=== PATIENT | female | born 1955 | race Caucasian/White ===

== ENCOUNTER 2023-01-11 12:00 | Outpatient (REF) | payer MEDICARE, SELFPAY | END 2023-01-11 12:01 | disposition home or self-care (01) | LOC: HO.LNP 12:00 | PROVIDERS: Visit Provider Internal Medicine | DX: M54.50 Low back pain, unspecified (principal); N18.9 Chronic kidney disease, unspecified; N30.01 Acute cystitis with hematuria; R73.01 Impaired fasting glucose | CPT/HCPCS: 87086 ==

== ENCOUNTER 2024-10-06 08:44 | Outpatient (REF) | payer MEDICARE, SELFPAY ==
--- OUTSIDE RECORDS SUMMARY | 2024-10-06 09:24 | XMS_ITS | Clinical Summary ---
Author Organization [facility] Address [address] [place] [address] Phone Care Team Providers Care Sap Treasury Consultant Name Role Phone June Driscoll MD Primary Care Provider Allergies Active Allergy Reactions Criticality Noted Date Comments Lisinopril-Hydrochlorothiazide Rash Low 10/13 Metformin Other (see comments) 10/13/2020 Medications venlafaxine 150 MG 24 hr tablet Take 1 tablet by mouth 2 (two) times a day Active pravastatin (PRAVACHOL) 40 MG tablet 80 mg Active losartan-hydroCH LOROthiazide (HYZAAR) 100-25 MG per tablet Take 1 tablet by mouth 1 (one) time each day Active hydroxychloroqui ne (PLAQUENIL) 200 MG tablet Take 1 tablet by mouth 1 (one) time each day Active Cholecalciferol 50 MCG (2000 UT) capsule Take 100 mcg by mouth 1 (one) time each day Active acetaminophen (TYLENOL) 325 MG tablet Take 975 mg by mouth 2 (two) times a day 05/08/2017 Active omega-3 (FISH OIL) 1200 MG capsule Take by mouth 1 (one) time each day Active Multiple Vitamins-Mineral s (Multivitamin Adults 50+) tablet Take by mouth Active metFORMIN XR (GLUCOPHAGE-XR) 500 MG 24 hr tablet Take 500 mg by mouth 09/05/2022 Active Active Problems Problem Noted Date Diagnosed Date Multiple nodules of lung 05/10/2022 Overview (10/09/2023): Last Assessment & Plan: 3 subcentimeter lung nodules in the setting of history of smoking. She needs a follow-up CT scan on March 2023.. She is enrolled in the lung cancer screening program. Hypercholesterolemia 03/22/2022 Overview (10/09/2023): Last Assessment & Plan: We did discuss her cholesterol. Her LDL goal is less than 70 with her prediabetes. She is doing well on her statin. Her last lipid check was favorable. She does have an elevation in triglycerides. Hopefully this will improve with diet and exercise. Tight chest 03/20/2022 Overview (10/09/2023): Last Assessment & Plan: We did discuss her chest tightness. This sounds like she is having esophageal spasm. We did discuss techniques that she can try to avoid this. History of procedure 03/20/2022 Overview (03/25/2024): Replacing diagnoses that were inactivated after the 03/25/24 Regulatory Import Hypertensive disorder 03/20/2022 Overview (10/09/2023): Last Assessment & Plan: Her blood pressure is stable today. We will continue to monitor. Ex-heavy cigarette smoker (20-39/day) 02/07/2022 Overview (10/09/2023): Last Assessment & Plan: Discussions regarding benefits of lung cancer screening were done. I will do a referral to the lung cancer screening clinic. Dyspnea on exertion 02/07/2022 Overview (10/09/2023): Last Assessment & Plan: Ashli is a 66-year-old ex-smoker woman with dyspnea on exertion and normal cardiovascular and pulmonary work-up. I do think that her dyspnea is multifactorial due to deconditioning in the setting of morbid obesity given her normal pulmonary function test. She does have some sleep apnea that has not been treated because she states that the machine is broken and I will order a new pulmonary function test. I encouraged her to start getting into an exercise program if is okay with her title checker. I told her that a weight loss and exercise fitness program may benefit and help her with the dyspnea. There is no need for using inhalers at this point but she has albuterol that she use a couple of times without any relief. She does not have wheezing so this is not asthma or COPD. Obstructive nephropathy 10/20/2020 Obstructive sleep apnea syndrome 10/20/2020 Anemia in chronic kidney disease 10/20/2020 Primary generalized osteoarthritis 10/20/2020 Localized edema 10/13/2020 Stage 3b chronic kidney disease 10/13/2020 Acute nontraumatic kidney injury 10/13/2020 Resolved Problems Problem Noted Date Diagnosed Date Resolved Date Osteoarthritis of left hip joint 05/07/2017 10/20/2020 Immunizations Immunization Administration Dates Next Due Influenza Split High Dose Preservative Free IM 1 Family History Medical History Relation Comments Gout Father Hypertension Father Kidney disease Father paternal grandmo ther had brights Stroke Father Dementia Mother Diabetes Mother Diabetes Sibling sister Relation Status Comments Father Mother Sibling Social History Tobacco Use Types Packs/Day Years Used Date Smoking Tobacco: Former Cigarettes 0 06/25/1979 - 06/25/2015 Smokeless Tobacco: Never Alcohol Use Standard Drinks/Week Comments No 0 (1 standard drink = 0.6 oz pur e alcohol) Comments Unknown Sex and Gender Information Value Date Recorded Sex Assigned at Female 10/17/2021 6:07 PM EDT Legal Sex Female 4:41 PM EST Gender Identity Female 10/17/2021 6:07 PM EDT Sexual Orientation Not on file Last Filed Vital Signs Vital Sign Reading Time Taken Comments Blood Pressure 136/78 10/10/2023 7:45 AM EDT Pulse 85 10/10/2023 7:45 AM EDT Temperature - - Respiratory Rate - - Oxygen Saturation 99% 10/10/2023 7:45 AM EDT Inhaled Oxygen Concentration - - Weight 97.8 kg (215 lb 9.6 oz) 10/10/2023 7:45 A M EDT Height 160 cm (5' 3 ) 10/10/2023 7:45 AM EDT Body Mass Index 38.19 10/10/2023 7:45 AM EDT Plan of Treatment Upcoming Encounters Date Type Department Care Team (Late st Contact Info) Description 10/08/2024 8:00 AM EDT Office Visit [facility] [address] [address] Chinedu Pavon MD [address] [address] Health Maintenance Due Date Last Done Comments Breast Cancer Screening 1954 Pneumococcal Vaccine: 50+ Ye ars (1 of 2 - PCV) 1973 Colorectal Cancer Screening: Annual FOBT 2003 Colorectal Cancer Screening: Colonoscopy 2003 Colorectal Cancer Screening: Sigmoidoscopy 2003 Influenza Vaccine (Season Ended) 2025 03/29/20 17 Hepatitis B Vaccine Aged Out No longe r eligible based on patient's age to complete this topic Insurance [employer] Medicare [employer] Medicare Care Teams Sap Treasury Consultant Relationship Specialty Start Date End Date June Driscoll MD [address] [place] [address] PCP - General Internal Medicine 10/11/22
--- OUTSIDE RECORDS SUMMARY | 2024-10-06 09:24 | XMS_ITS | Encounter Summary ---
Author Organization [facility] Address [address] [place] [address] Care Team Providers Care House Mover Supervisor Name Role Phone June Driscoll MD Primary Care Provider [phone] Encounter Details Date Type Department Care Team (Late st Contact Info) Description 08/26/2024 Lab Requisition [facility] - Main Lab [address] [facility] [place] [address] June Driscoll MD [address] [place] [address] [place] [address] Social History Tobacco Use Types Packs/Day Years Used Date Smoking Tobacco: Former Cigarettes Q uit: 06/25/2014 Smokeless Tobacco: Never Alcohol Use Standard Drinks/Week Comments Not Currently 0 (1 standard drink = 0.6 oz pur e alcohol) Comments Unknown Sex and Gender Information Value Date Recorded Sex Assigned at Not on file Legal Sex Female 7:27 AM EDT Gender Identity Not on file Sexual Orientation Not on file documented as of this encounter Plan of Treatment Scheduled Orders Name Type Priority Associated Diagnoses Orde r Schedule Comprehensive metabolic panel Lab Routine Ordered: 08/26/2024 Hemoglobin A1c Lab Routine Ordered: 0 08/26/2024 documented as of this encounter Visit Diagnoses Not on filedocumented in this encounter Care Teams House Mover Supervisor Relationship Specialty Start Date End Date June Driscoll MD [address] [place] PCP - General Internal Medicine 01/04/22 documented as of this encounter
--- OUTSIDE RECORDS SUMMARY | 2024-10-06 09:24 | XMS_ITS | Clinical Summary ---
Author Organization [facility] Address [address] [place] [address] Care Team Providers Care Biomedical Engineering Internship Name Role Phone June Driscoll MD Primary Care Provider [phone] Allergies No known active allergies Encounters Date Type Department Care Team Description 08/26/2024 Lab Requisition [facility] - Main Lab 299 [facility] [place] [address] June Driscoll MD from Last 3 Months Family History Medical History Relation Name Comments Other: stroke Father Relation Name Status Comments Father Social History Tobacco Use Types Packs/Day Years [...] on file Sexual Orientation Not on file Obstetrics History Last Filed Vital Signs Vital Sign Reading Time Taken Comments Blood Pressure 124/76 07/25/2023 7:43 AM EST Sit ting L Arm Pulse 85 07/25/2023 7:43 AM EST Temperature - - Respiratory Rate - - Oxygen Saturation - - Inhaled Oxygen Concentration - - Weight 98.4 kg (217 lb) 07/25/2023 7:43 AM EST Height 161.3 cm (5' 3.5 ) 07/25/2023 7:43 AM EST Body Mass Index 37.84 07/25/2023 7:43 AM EST Plan of Treatment Health Maintenance Due Date Last Done Comments Breast Cancer Screening 1954 COVID-19 Vaccine (#1) 1959 DTaP,Tdap,and Td Vaccines (1 - Tdap) 1973 Pneumococcal Vaccine: 50+ Years (1 of 1 - PCV) 2004 Zoster Vaccines (1 of 2) 2004 Cholesterol Screening (Lipid Panel) 12/05/2021 Depression Screening 12/05/2021 Falls Risk Assessment 12/05/2021 Hepatitis C Screening 12/05/2021 Medicare Annual Wellness Visit 12/05/2021 Osteoporosis Screening (Bone Density Screening) 12/05/2021 Social Influencers of Health Screening 12/05/2021 Hypertension/CHF/CAD Annual BMP Blood Test 07/24/2023 Influenza Vaccine (Season Ended) 2025 05/14/2020, 03/29/2017 Lung Cancer Screening (Low Dose CT) 06/10/2025 06/10/2024, 05/26/2023, 04/24/2022 Colorectal Cancer Screening: FIT-DNA (Cologuard) 05/21/2026 05/21/2023, 05/21/2023 RSV Immunization Adult Patients (1 - 1-dose 75+ series) 2029 HIB Vaccines Aged Out No longer eligi ble based on patient's age to complete this topic HPV Vaccines Aged Out No longer eligi ble based on patient's age to complete this topic Hepatitis A Vaccines Aged Out No long er eligible based on patient's age to complete this topic Hepatitis B Vaccines Aged Out No long er eligible based on patient's age to complete this topic IPV Vaccines Aged Out No longer eligi ble based on patient's age to complete this topic MMR Vaccines Aged Out No longer eligi ble based on patient's age to complete this topic Meningococcal ACWY Vaccine Aged Out N o longer eligible based on patient's age to complete this topic Meningococcal B Vaccine Aged Out No l onger eligible based on patient's age to complete this topic RSV Immunization Patients Under 20 months Aged Out No longer eligible b ased on patient's age to complete this topic Varicella Vaccines Aged Out No longer eligible based on patient's age to complete this topic Procedures Procedure Name Priority Date/Time Associated Diagnosis Comments CT LUNG SCREENING Routine 06/10/2024 3:4 9 PM EST Personal history of nicotine dependence Encounter for screening for malignant neoplasm of respiratory organs from Last 3 Months or Most Recently Relevant to Health Maintenance Results * CT Lung Screening (06/10/2024 3:49 PM EST) Anatomical Region Laterality Modality Chest Computed Tomogra phy 06/12/2024 10:1 6 AM EST Impressions 06/12/2024 10:28 AM EST No suspicious pulmonary nodules Lung RADS 2: Benign Appearance or Behavior - Continue annual screening with LDCT in 12 months. -------- FINAL REPORT -------- Dictated By: Sudha Shaikh Dictated Date: 06/12/2024 10:16 ET Assigned Physician: Sudha Shaikh Reviewed and Electronically Signed By: Sudha Shaikh Signed Date: 06/12/2024 10:28 ET Workstation ID: [id number] Transcribed By: Self Edit Transcribed Date: 06/12/2024 10:16 ET Narrative 06/12/2024 10:28 AM EST Indication: Greater than 20 total pack-year smoking history, asymptomatic ??former smoker Technique: Low-dose CT scan of the chest obtained as a lung cancer screening study. Multiplanar reformatted images were obtained. ??Dose reduction technique: ASIR (Adaptive statistical iterative reconstruction) and/or AEC (automated exposure control) DLP: ??158.31 mGy-cm COMPARISON: April 2023. FINDINGS: Lack of intravenous contrast limits evaluation of the magali, vascular structures and visualized abdominal viscera. ?? Lungs/airways: Trachea and central airways are patent. ??Mild bronchial wall thickening. ??Bleb in the anterior left upper lobe. ??Emphysematous changes. ??Increased reticularity with a subpleural predominance in keeping with fibrosis. ??Nonspecific groundglass opacities in the left lower lobe of the lung; slightly increased from 2022. Scattered sub-centimeter nodules, similar to prior. For example: 3 mm nodule in the left upper lobe (series 3, image 93) 6 mm nodule right upper lobe (series 3, image 101) Base of the neck, mediastinum, heart, chest wall, vessels: ??The assessment of hilar lymphadenopathy is difficult without the use of IV contrast. ??No enlarged mediastinal lymphadenopathy. ??Thoracic aortic and coronary artery calcifications. ?? Upper abdomen: This study was performed without contrast and with lower than standard dose. These factors reduce the sensitivity for detection of small lesions in the upper abdomen. Small hiatal hernia. ??Fatty infiltration of the pancreas. ??Cholelithiasis. Bones/soft tissues: Degenerative changes. ??Partially visualized cervical fusion hardware. Procedure Note Sudha Shaikh MD - 06/12/2024 Indication: Greater than 20 total pack-year smoking history, asymptomaticformer smoker Technique: Low-dose CT scan of the chest obtained as a lung cancerscreening study. Multiplanar reformatted images were obtained. Dosereduction technique: ASIR (Adaptive statistical iterative reconstruction)and/or AEC (automated exposure control) DLP: 158.31 mGy-cm COMPARISON: April 2023. FINDINGS: Lack of intravenous contrast limits evaluation of the magali,vascular structures and visualized abdominal viscera. Lungs/airways: Trachea and central airways are patent. Mild bronchialwall thickening. Bleb in the anterior left upper lobe. Emphysematouschanges. Increased reticularity with a subpleural predominance in keepingwith fibrosis. Nonspecific groundglass opacities in the left lower lobeof the lung; slightly increased from 2022. Scattered sub-centimeter nodules, similar to prior. For example: 3 mm nodule in the left upper lobe (series 3, image 93) 6 mm nodule right upper lobe (series 3, image 101) Base of the neck, mediastinum, heart, chest wall, vessels: The assessmentof hilar lymphadenopathy is difficult without the use of IV contrast. Noenlarged mediastinal lymphadenopathy. Thoracic aortic and coronary arterycalcifications. Upper abdomen: This study was performed without contrast and with lowerthan standard dose. These factors reduce the sensitivity for detection ofsmall lesions in the upper abdomen. Small hiatal hernia. Fattyinfiltration of the pancreas. Cholelithiasis. Bones/soft tissues: Degenerative changes. Partially visualized cervicalfusion hardware. IMPRESSION: No suspicious pulmonary nodules Lung RADS 2: Benign Appearance or Behavior - Continue annual screeningwith LDCT in 12 months. -------- FINAL REPORT -------- Dictated By: Sudha Shaikh Dictated Date: 06/12/2024 10:16 ET Assigned Physician: Sudha Shaikh Reviewed and Electronically Signed By: Sudha Shaikh Signed Date: 06/12/2024 10:28 ET Workstation ID: [id number] Transcribed By: Self Edit Transcribed Date: 06/12/2024 10:16 ET Enoc Delatorre MD IMG CT PROCEDURES Final Result from Last 3 Months or Most Recently Relevant to Health Maintenance Insurance [employer] Care Teams Biomedical Engineering Internship Relationship Specialty Start Date End Date June Driscoll MD [address] PCP - General Internal Medicine 01/04/22
[2024-10-06 10:50] LABS: MANUAL DIFF FLAG NO
[2024-10-06 10:52] LABS: Basophils Percent Auto 1.8 % (0-2); Eosinophils Percent Auto 5.3 % (0-4); Hematocrit 36.2 % (37.0-47.0); Hemoglobin 11.9 g/dl (12.0-16.0); Imm Gran Abs Auto 0.01 X10*3/uL (0.00-0.03); Imm Gran Pct Auto 0.2 % (0.0-0.4); Lymphocytes Percent Auto 22.6 % (20-40); Mean Corpuscular HGB Conc 32.9 g/dl (31.0-35.0); Mean Corpuscular Hemoglobin 31.5 pg (27.0-33.0); Mean Corpuscular Volume 95.8 fL (80.0-98.0); Mean Platelet Volume 9.6 fL (9.4-12.3); Monocytes Absolute Auto 0.5 X10*3/uL (0.1-1.2); Monocytes Percent Auto 10.6 % (2-11); Neutrophils Absolute Auto 2.6 x10*3/uL (2.0-8.3); Neutrophils Percent Auto 59.5 % (45-73); Platelet Count 264 X10*3/uL (160-400); Red Blood Count 3.78 X10*6/uL (4.20-5.50); Red Cell Distribution Width 12.3 % (11.0-16.0); White Blood Count 4.3 X10*3/uL (4.8-10.8)
[2024-10-06 10:53] LABS: Basophils Absolute Auto 0.1 X10*3/uL (0.0-0.2); Eosinophils Absolute Auto 0.2 X10*3/uL (0.0-0.4)
[2024-10-06 10:56] LABS: Appearance Urine Clear; Color Urine Yellow; Glucose Urine UA Negative (Negative); Leukocyte Esterase Urine Moderate (2+) (Negative); Nitrite Urine Negative (Negative); PH 6.5 (5.0-9.0); UMIC TRIGGER UA YES; Urine Blood Negative (Negative); Urine Ketones Negative (Negative); Urine Protein Negative (Neg-Trace)
[2024-10-06 11:15] LABS: Bacteria Urine None Seen (None Seen); Hyaline Casts Urine 0-2 /LPF (0-2); RBC Urine 0-2 /HPF (0-2); WBC Urine 0-5 /HPF (0-5)
[2024-10-06 11:15] LABS: Estimated Average Glucose 120 mg/dL; Hemoglobin A1C 127.4891 umol/L; Hemoglobin A1c % 5.8 % (<6.0); Total Hemoglobin (HGBA1C) 3171.0351 umol/L
[2024-10-06 11:26] LABS: Magnesium 2.1 mg/dL (1.6-2.6); Phosphorus 3.7 mg/dL (2.7-4.5); Total Protein 6.7 g/dL (6.5-8.0); Uric Acid 8.3 mg/dL (2.4-5.7)
[2024-10-06 11:29] LABS: Alanine Aminotransferase 17 U/L (0-31); Albumin Level 3.9 g/dL (3.5-5.0); Alkaline Phosphatase 56 U/L (39-117); Anion Gap 10 (12-20); Aspartate Amino Transferase 24 U/L (5-31); Bilirubin Total 0.3 mg/dL (0.0-1.0); Blood Urea Nitrogen 22 mg/dL (9-16); Calcium 9.6 mg/dL (8.4-10.2); Carbon Dioxide 26 mmol/L (22-29); Chloride 108 mmol/L (96-108); Estimated Glomerular Filt Rate 42; Glucose Random 91 mg/dL (60-115); Potassium 4.3 mmol/L (3.3-5.1); Sodium 140 mmol/L (135-145); Total Protein 6.7 g/dL (6.5-8.0)
[2024-10-06 11:42] LABS: Creatinine Urine 61.96 mg/dL; Total Protein Urine Random < 7 mg/dL (<12)
[2024-10-06 11:44] LABS: Parathyroid Hormone Intact 99.8 pg/mL (8.7-77.1)
[2024-10-06 11:46] LABS: Thyroid Stimulating Hormone 2.76 uIU/mL (0.32-4.0)
== END 2024-10-06 08:45 | disposition home or self-care (01) ==
LOC: HO.HMGCLDS 08:44
PROVIDERS: PCP Internal Medicine; Referring Provider Internal Medicine Nephrology; Visit Provider Internal Medicine
DX: E03.8 Other specified hypothyroidism (principal); E78.00 Pure hypercholesterolemia, unspecified; F33.41 Major depressive disorder, recurrent, in partial remission; I10 Essential (primary) hypertension; I12.9 Hypertensive chronic kidney disease with stage 1 through stage 4 chronic kidney disease, or unspecified chronic kidney disease; R73.01 Impaired fasting glucose; N18.32 Chronic kidney disease, stage 3b; R60.0 Localized edema; D63.1 Anemia in chronic kidney disease; N13.8 Other obstructive and reflux uropathy; N17.9 Acute kidney failure, unspecified; G47.33 Obstructive sleep apnea (adult) (pediatric)
CPT/HCPCS: 36415; 80053; 81001; 82306; 82570; 83036; 83735; 83970; 84100; 84155; 84156; 84443; 84550; 85025

== ENCOUNTER 2024-11-24 08:03 | Outpatient (REF) | payer MEDICARE, SELFPAY ==
--- OUTSIDE RECORDS SUMMARY | 2024-11-24 08:08 | XMS_ITS | Encounter Summary ---
Author Organization [facility] Address [address] [place] [address] Care Team Providers Care Content Architect Name Role Phone June Driscoll MD Primary Care Provider [phone] Encounter Details Date Type Department Care Team (Late st Contact Info) Description 08/26/[address] [facility] - Main Lab 299 [facility] [place] [address] June Driscoll MD [address] [place] [address] [place] [address] Social History Tobacco Use Types Packs/Day Years Used Date Smoking Tobacco: Former Cigarettes Q uit: 06/25/2014 Smokeless Tobacco: Never Alcohol Use Standard Drinks/Week Comments Not Currently 0 (1 standard drink = 0.6 oz pur e alcohol) Comments Unknown Sex and Gender Information Value Date Recorded Sex Assigned at Female 10/08/2024 7:12 PM EDT Legal Sex Female 7:27 AM EDT Gender Identity Female 10/08/2024 7:12 PM EDT Sexual Orientation Straight 10/08/2024 7: 12 PM EDT documented as of this encounter Plan of Treatment Scheduled Orders Name Type Priority Associated Diagnoses Orde r Schedule Comprehensive metabolic panel Lab Routine Ordered: 08/26/2024 Hemoglobin A1c Lab Routine Ordered: 0 08/26/2024 documented as of this encounter Visit Diagnoses Not on filedocumented in this encounter Care Teams Content Architect Relationship Specialty Start Date End Date June Driscoll MD [address] [facility] [address] [place], [place] PCP - General Internal Medicine 01/04/22 documented as of this encounter
[2024-11-24 10:05] LABS: MANUAL DIFF FLAG NO
[2024-11-24 10:20] LABS: Basophils Absolute Auto 0.1 X10*3/uL (0.0-0.2); Basophils Percent Auto 1.5 % (0-2); Eosinophils Absolute Auto 0.2 X10*3/uL (0.0-0.4); Eosinophils Percent Auto 4.5 % (0-4); Hematocrit 36.9 % (37.0-47.0); Hemoglobin 11.9 g/dl (12.0-16.0); Imm Gran Abs Auto 0.03 X10*3/uL (0.00-0.03); Imm Gran Pct Auto 0.6 % (0.0-0.4); Lymphocytes Absolute Auto 1.1 X10*3/uL (1.2-4.9); Lymphocytes Percent Auto 19.5 % (20-40); Mean Corpuscular HGB Conc 32.2 g/dl (31.0-35.0); Mean Corpuscular Hemoglobin 31.1 pg (27.0-33.0); Mean Corpuscular Volume 96.3 fL (80.0-98.0); Mean Platelet Volume 9.8 fL (9.4-12.3); Monocytes Absolute Auto 0.6 X10*3/uL (0.1-1.2); Monocytes Percent Auto 10.4 % (2-11); NRBC Pct Auto 0.4 /100WBC (0.0-0.2); Neutrophils Absolute Auto 3.4 x10*3/uL (2.0-8.3); Neutrophils Percent Auto 63.5 % (45-73); Platelet Count 263 X10*3/uL (160-400); Red Blood Count 3.83 X10*6/uL (4.20-5.50); Red Cell Distribution Width 12.5 % (11.0-16.0); White Blood Count 5.4 X10*3/uL (4.8-10.8)
[2024-11-24 10:39] LABS: Alanine Aminotransferase 14 U/L (0-31); Alkaline Phosphatase 50 U/L (39-117); Aspartate Amino Transferase 23 U/L (5-31); Bilirubin Direct 0.1 mg/dL (0.0-0.5); Bilirubin Total 0.3 mg/dL (0.0-1.0); Total Protein 6.6 g/dL (6.5-8.0)
== END 2024-11-24 08:04 | disposition home or self-care (01) ==
LOC: HO.HMGCLDS 08:03
PROVIDERS: PCP Internal Medicine; Visit Provider Dermatology
DX: L93.0 Discoid lupus erythematosus (principal); L73.8 Other specified follicular disorders; L29.89 Other pruritus; R20.9 Unspecified disturbances of skin sensation; Z79.899 Other long term (current) drug therapy
CPT/HCPCS: 36415; 80076; 85025

== ENCOUNTER 2025-03-06 07:50 | Outpatient (REF) | payer MEDICARE, SELFPAY ==
--- OUTSIDE RECORDS SUMMARY | 2025-03-06 07:53 | XMS_ITS | Clinical Summary ---
Author Organization [facility] Address [address] [address] Phone Care Team Providers Care Presidential Support Specialist Name Role Phone June Driscoll MD Primary [...] time each day Active Cholecalciferol 50 MCG (1999 UT) capsule Take 100 mcg by mouth [...] Active Problems Problem Noted Date Diagnosed Date Dyslipidemia 10/08/2024 Discoid lupus erythematosus 10/08/2024 Superficial thrombophlebitis 10/08/2024 Pyelonephritis 10/08/2024 Multiple nodules of lung 05/10/2022 Overview (10/09/2023): Last Assessment & Plan: 3 subcentimeter lung nodules in the setting of history of smoking. She needs a follow-up CT scan on March 2023.. She is enrolled in the lung cancer screening program. Hypertension 03/20/2022 Overview (10/09/2023): Last Assessment & Plan: [...] exercise program if is okay with her merchandise worker. I told her that a weight loss [...] Problem Noted Date Diagnosed Date Resolved Date Hypercholesterolemia 03/22/2022 025 Overview (10/09/2023): Last Assessment & Plan: We did discuss her cholesterol. Her LDL goal is less than 70 with her prediabetes. She is doing well on her statin. Her last lipid check was favorable. She does have an elevation in triglycerides. Hopefully this will improve with diet and exercise. Tight chest 03/20/2022 10/08/2024 Overview (10/09/2023): Last Assessment & Plan: We did discuss her chest tightness. This sounds like she is having esophageal spasm. We did discuss techniques that she can try to avoid this. History of procedure 03/20/2022 025 Overview (03/25/2024): Replacing diagnoses that were inactivated after the 03/25/24 Regulatory Import Osteoarthritis of left hip joint 05/07/2017 10/20/2020 [...] Sign Reading Time Taken Comments Blood Pressure 115/68 10/08/2024 8:14 AM EDT Pulse 96 10/08/2024 8:14 AM EDT Temperature - - Respiratory Rate - - Oxygen Saturation 97% 10/08/2024 8:14 AM EDT Inhaled Oxygen Concentration - - Weight 97.3 kg (214 lb 9.6 oz) 10/08/2024 8:14 A M EDT Height 160 cm (5' 3 ) 10/10/2023 7:45 AM EDT Body Mass Index 38.01 10/10/2023 7:45 AM EDT Plan of Treatment Upcoming Encounters Date Type Department Care Team (Late st Contact Info) Description 10/08/2025 8:00 AM EDT Office Visit [facility] [address] [address] Mary Garland ARNP [address] [address] Health Maintenance Due Date Last Done Comments Breast Cancer Screening 1954 Pneumococcal Vaccine: 50+ Ye ars (1 of 2 - PCV) 1973 Colorectal Cancer Screening: Annual FOBT 2003 Colorectal Cancer Screening: Colonoscopy 2003 Colorectal Cancer Screening: Sigmoidoscopy 2003 Influenza Vaccine (#1) 2025 03/29/2017 Hepatitis B Vaccine Aged Out No longe r eligible based on patient's age to complete this topic Insurance [employer] Medicare [facility] Medicare Care Teams Presidential Support Specialist Relationship Specialty Start Date End Date June Driscoll MD [facility] [address] PCP - General Internal Medicine 10/11/22
--- OUTSIDE RECORDS SUMMARY | 2025-03-06 07:53 | XMS_ITS | Clinical Summary ---
Author Organization Patient [facility] Address [address] [place] [address] Care Team Providers Care Patient Safety Sitter Name Role Phone June Driscoll MD Primary Care Provider [phone] Allergies No known active allergies Family History Medical History Relation Name Comments [...] Orientation Straight 10/08/2024 7: 12 PM EDT Obstetrics History Last Filed Vital Signs Vital [...] 2) 2004 Cholesterol Screening (Lipid Panel) 12/05/2021 Falls Risk Assessment 12/05/2021 Hepatitis C Screening 12/05/2021 Medicare Annual Wellness Visit 12/05/2021 Osteoporosis Screening (Bone Density Screening) 12/05/2021 Social Influencers of Health Screening 12/05/2021 Hypertension/CHF/CAD Annual BMP Blood Test 07/24/2023 Depression Screening 06/25/2024 Influenza Vaccine (#1) 2025 , 03/29/2017 Lung Cancer Screening (Low Dose CT) [...] Signed Date: 06/12/2024 10:28 ET Workstation ID: [id number] Transcribed By: Self Edit Transcribed Date: 06/12/2024 10:16 ET Narrative 06/12/2024 10:28 AM EST Indication: Greater than 20 total pack-year smoking history, asymptomatic former smoker Technique: Low-dose CT scan of the chest obtained as a lung cancer screening study. Multiplanar reformatted images were obtained. Dose reduction technique: ASIR (Adaptive statistical iterative reconstruction) and/or AEC (automated exposure control) DLP: 158.31 mGy-cm COMPARISON: April 2023. FINDINGS: Lack of intravenous contrast limits evaluation of the magali, vascular structures and visualized abdominal viscera. Lungs/airways: Trachea and central airways are patent. Mild bronchial wall thickening. Bleb in the anterior left upper lobe. Emphysematous changes. Increased reticularity with a subpleural predominance in keeping with fibrosis. Nonspecific groundglass opacities in the left lower lobe of the lung; slightly increased from 2022. Scattered sub-centimeter nodules, similar to prior. For example: 3 mm nodule in the left upper lobe (series 3, image 93) 6 mm nodule right upper lobe (series 3, image 101) Base of the neck, mediastinum, heart, chest wall, vessels: The assessment of hilar lymphadenopathy is difficult without the use of IV contrast. No enlarged mediastinal lymphadenopathy. Thoracic aortic and coronary artery calcifications. Upper abdomen: This study was performed without contrast and with lower than standard dose. These factors reduce the sensitivity for detection of small lesions in the upper abdomen. Small hiatal hernia. Fatty infiltration of the pancreas. Cholelithiasis. Bones/soft tissues: Degenerative changes. Partially visualized cervical fusion hardware. Procedure Note Sudha [...] Signed Date: 06/12/2024 10:28 ET Workstation ID: [id number] Transcribed By: Self Edit Transcribed Date: 06/12/2024 10:16 ET us Enoc Delatorre MD IMG CT PROCEDURES Final Result from Last 3 Months or Most Recently Relevant to Health Maintenance Insurance [employer] Care Teams Patient Safety Sitter Relationship Specialty Start Date End Date June Driscoll MD [address] PCP - General Internal Medicine 01/04/22
--- OUTSIDE RECORDS SUMMARY | 2025-03-06 07:53 | XMS_ITS | Encounter Summary ---
Author Organization [facility] [place] [address] Care Team Providers Care Media Assistant Name Role Phone June Driscoll MD Primary Care Provider [phone] Encounter Details Date Type Department Care Team (Late st Contact Info) Description 08/26/2024 Lab Requisition [facility] - Main Lab [address] [facility] [employer] [place] [address] June Driscoll MD [address] [place] [address] [place] [address] Social History Tobacco Use Types Packs/Day Years [...] on filedocumented in this encounter Care Teams Media Assistant Relationship Specialty Start Date End Date June Driscoll MD [address] [facility] [address] [place], [place] PCP - General Internal Medicine 01/04/22 documented as of this encounter
--- OUTSIDE RECORDS SUMMARY | 2025-03-06 07:53 | XMS_ITS | Encounter Summary ---
Author Organization [facility] Address [address] [place] [address] [place] [phone] Phone Care Team Providers Care Sweet Goods Machine Operator Name Role Phone June Driscoll MD Primary Care Provider Brain Lal DO Unavailable June Driscoll MD Unavailable Bry Mack MD Unavailable [phone] Encounter Details Date Type Department Care Team (Late st Contact Info) Description 05/07/2017 Procedure Pass [facility] [address] [place] [id number] Social History Tobacco Use Types Packs/Day Years Used Date Smoking Tobacco: Former Cigarettes 1 40 0 02/23/1975 - 02/23/2015 Smokeless Tobacco: Never Alcohol Use Standard Drinks/Week Comments No 0 (1 standard drink = 0.6 oz pur e alcohol) Comments Unknown Sex and Gender Information Value Date Recorded Sex Assigned at Not on file Legal Sex Female 8:55 AM EDT Gender Identity Not on file Sexual Orientation Not on file documented as of this encounter Plan of Treatment Not on file documented as of this encounter Visit Diagnoses Not on filedocumented in this encounter Care Teams Sweet Goods Machine Operator Relationship Specialty Start Date End Date June Driscoll MD [address] [place] [address] [place] [phone] PCP - General Internal Medicine 03/12/17 Brain Lal DO [facility], [place] [address] [email or web address] Historical LMR Provider 04/12/17 07/02/21 June Driscoll MD [address] [place] [address] [place] [address] Historical LMR Provider 04/12/17 2 Bry Mack MD [address] [facility], [address] [place] [id number] [email or web address] Historical LMR Provider 04/12/17 07/02/21 documented as of this encounter Additional Source Comments The information contained in this document represents components of the legal health record. It is not the complete legal health record.[facility]
--- OUTSIDE RECORDS SUMMARY | 2025-03-06 07:53 | XMS_ITS | Clinical Summary ---
Author Organization [facility] Address [address] [place] [address] Phone Care Team Providers Care Composite Bond Technician Name Role Phone June Driscoll MD Primary Care Provider Allergies Active Allergy Reactions Criticality Noted Date Comments Lisinopril Hives 09/21/2016 Metformin Hcl Nausea and/or Vomiting 09/21/2016 Medications hydroxychloroqu ine (PLAQUENIL) 200 mg tablet Take 200 mg by mouth daily. Active venlafaxine (EFFEXOR) 37.5 MG tablet Take 37.5 mg by mouth 2 (two) times a day. Active cholecalciferol (VITAMIN D3) 400 unit tablet Take 400 Units by mouth daily. Active acetaminophen (TYLENOL) 325 mg tablet Take 3 tablets (975 mg total) by mouth every 8 (eight) hours. 200 tablet 7 Active Additional Information Patient taking differently:975 mg OralAs needed, Reported on 10/02/2018 aspirin 325 MG EC tablet Take 1 tablet (325 mg total) by mouth 2 (two) times a day. 60 tablet 7 Active Additional Information Patient not taking.Reported on 10/03/2017 oxyCODONE 5 MG immediate release tablet Take 1-2 tablets (5-10 mg total) by mouth every 4 (four) hours as needed for moderate pain. Pt. may request partial fill. Please do not drive a motor vehicle, operate heavy machinery or drink alcohol while taking this medication. 60 tablet 7 Active Additional Information Patient not taking.Reported on 10/03/2017 docusate sodium (COLACE) 100 MG capsule Take 1 capsule (100 mg total) by mouth 2 (two) times a day. 40 capsule Active Additional Information Patient not taking.Reported on 10/03/2017 senna (SENOKOT) 8.6 mg tablet Take 2 tablets by mouth nightly. 40 tablet Active Additional Information Patient not taking.Reported on 10/03/2017 losartan (COZAAR) 25 MG tablet Take 1 tablet (25 mg total) by mouth daily. 7 Active Active Problems Problem Noted Date Diagnosed Date Primary osteoarthritis of left hip 05/08/2017 Osteoarthritis of left hip 05/07/2017 Social History Tobacco Use Types Packs/Day Years Used Date Smoking Tobacco: Former Cigarettes 1 40 0 02/23/1975 - 02/23/2015 Smokeless Tobacco: Never Tobacco Cessation:Counseling Given: No Alcohol Use Standard Drinks/Week Comments No 0 (1 standard drink = 0.6 oz pur e alcohol) Education Answer Date Recorded Are you interested in more education? Not on yrn e 10/20/2022 Are you concerned about learning? Not on file 10/20/2022 No 10/20/2022 No 10/20/2022 Digital Access Answer Date Recorded No 11/20/2022 No 11/20/2022 Reliable internet access at home? Not on file 11/20/2022 Device with a working camera? Not on file Comments Unknown Sex and Gender Information Value Date Recorded Sex Assigned at Not on file Legal Sex Female 8:55 AM EDT Gender Identity Not on file Sexual Orientation Not on file Last Filed Vital Signs Vital Sign Reading Time Taken Comments Blood Pressure 146/67 05/10/2017 8:04 AM EST Pulse 80 05/10/2017 8:04 AM EST Temperature 36.9 C (98.4 F) 05/10/2017 7:16 AM EST Respiratory Rate 18 05/10/2017 7:16 AM EST Oxygen Saturation 96% 05/10/2017 7:16 AM EST Inhaled Oxygen Concentration - - Weight 109.8 kg (242 lb) 10/02/2018 10:29 AM EDT Height 160 cm (5' 3 ) 10/02/2018 10:29 AM EDT Body Mass Index 42.87 10/02/2018 10:29 AM EDT Plan of Treatment Health Maintenance Due Date Last Done Comments Adult Td,Tdap Booster 1954 LIPID PANEL 1954 DEPRESSION SCREENING 1966 SMOKING Hx and SMOKELESS TOBACCO SCREENING 1967 HEPATITIS C SCREENING 1972 MAMMOGRAM 1994 COLOGUARD 1999 COLONOSCOPY 1999 COLORECTAL CANCER SCREENING 1999 FIT TEST 1999 FOBT 1999 SIGMOIDOSCOPY 1999 VIRTUAL COLONOSCOPY 1999 PNEUMOCOCCAL VACCINES (50+ years) (1 of 1 - PCV) 2004 ZOSTER VACCINES (1 of 2) 2004 CREATININE LEVEL 05/09/2018 05/09/2017, 05/08/2017 POTASSIUM LEVEL 05/09/2018 05/09/2017, 05/08/2017 OSTEOPOROSIS SCREENING INITI AL (ONE-TIME) 2019 INFLUENZA VACCINE (#1) 2025 05/14/2020 COVID-19 VACCINE (1 - 2023-2 5 season) 2025 RSV VACCINE (1 - 1-dose 75+ series) 2029 HEPATITIS A VACCINES Aged Out No long er eligible based on patient's age to complete this topic HIB VACCINES Aged Out No longer eligi ble based on patient's age to complete this topic MENINGOCOCCAL VACCINES (ACWY) Aged Out No longer eligible based on patient's age to complete this topic MENINGOCOCCAL VACCINES (B) Aged Out N o longer eligible based on patient's age to complete this topic Medical Devices Implanted Type Area Manager Java Device Identifier Shelf Expiration Date Model / Serial / Lot Cage Cage Spine Lumbar Screw Bone 6.5x30mm Hip Cancellous Self Tapping Partial Thread Non Sterile Trident S/S Ea Hip 16a - [id number] Implanted:Qty: 1 on 05/07/2017 by Bill Warner MD, PhD at [facility] Left: [employer] 03/27/2022 2030-653 0-1 / / [id number] Screw Bone 6.5x25mm Hip Cancellous Self Tapping Partial Thread Non Sterile Trident S/S Ea Hip 16a - [id number] Implanted:Qty: 1 on 05/07/2017 by Bill Warner MD, PhD at [facility] [employer] Left: [employer] 04/04/2022 2030-652 5-1 / / [id number] Femoral Stem Sz 6 Accolade Ii 127 Deg Hip [id number] Implanted:Qty: 1 on 05/07/2017 by Bill Warner MD, PhD at [facility] [employer] Left: [employer] 03/14/2022 6721-063 5 / / [id number] Implant Hip 5mm Femoral Head Neck Alumina Ceramic Modular Delta Biolox Delta 36mm Minus Ea Hip [id number] Implanted:Qty: 1 on 05/07/2017 by Bill Warner MD, PhD at [facility] STANDARD Left: [employer] 08/16/2021 6570-0-0 36 / / [id number] Implant Hip Size E 52mm Femoral Shell Acetabular Trident Hemispherical Cluster Ultra High Ea Hip [id number] Implanted:Qty: 1 on 05/07/2017 by Bill Warner MD, PhD at [facility] STANDARD Left: [employer] 08/01/2021 502-11-5 2E / / [id number] Implant Hip X3 0deg 36mm Size E Femoral Insert Acetabular Trident Ea Hip [id number] Implanted:Qty: 1 on 05/07/2017 by Bill Warner MD, PhD at [facility] STANDARD Left: [employer] 04/18/2022 623-00-3 6E / / [id number] Screw Screw Neck Procedures Procedure Name Priority Date/Time Associated Diagnosis Comments BASIC METABOLIC PANEL Routine 05/09/2017 4:30 AM EST from Last 3 Months or Most Recently Relevant to Health Maintenance Results * (ABNORMAL) Basic metabolic panel (05/09/2017 4:30 AM EST) SODIUM 135 135 - 145 mmol/L [facility] POTASSIUM 4.0 3.4 - 5.0 mmol/L [facility] CHLORIDE 100 98 - 108 mmol/L [facility] CO2 23 23 - 32 mmol/L [facility] BUN 15 8 - 25 mg/dL [facility] CREATININE 1.00 0.60 - 1.50 mg/dL [facility] GLUCOSE 154(H) 70 - 110 mg/dL [facility] CALCIUM 8.8 8.5 - 10.5 mg/dL [facility] EGFR 56(A) >60 mL/min/1. 73m2 [facility] Comment:The normal range for eGFR is >60 mL/min/1.73m2. If this patient is -[place], this patient's race-adjusted eGFR is >60 mL/min/1.73m2 and the abnormal flag should be disregarded. ANION GAP 12 3 - 17 mmol/L [facility] Blood 05/09/2017 4:30 AM EST 05/09/2017 5:01 AM EST Bill Warner MD, PhD LAB BLOOD ORDERABLES Evie thurston Result [address] [id number] from Last 3 Months or Most Recently Relevant to Health Maintenance Insurance [employer] Advance Directives For more information, please contact: [phone] (9AM - 5PM [facility], Sunday-Sunday) * Full Code (Presumed) (Latest Code Status on File) Date Activated Date Inactivated Comments 05/07/2017 5:04 PM 05/10/2017 3:14 PM * Full Code (Presumed) Date Activated Date Inactivated Comments 05/07/2017 11:49 AM 05/07/2017 5:04 PM Care Teams Composite Bond Technician Relationship Specialty Start Date End Date June Driscoll MD [address] [place] [address] [place] [phone] PCP - General Internal Medicine 03/12/17 Additional Source Comments The information contained in this document represents components of the legal health record. It is not the complete legal health record.[facility]
[2025-03-06 10:56] LABS: Alanine Aminotransferase 17 U/L (0-31); Albumin Level 4.3 g/dL (3.5-5.0); Alkaline Phosphatase 51 U/L (39-117); Anion Gap 14 (12-20); Aspartate Amino Transferase 25 U/L (5-31); Blood Urea Nitrogen 21 mg/dL (9-16); Calcium 9.9 mg/dL (8.4-10.2); Carbon Dioxide 27 mmol/L (22-29); Chloride 106 mmol/L (96-108); Estimated Glomerular Filt Rate 38; Potassium 4.5 mmol/L (3.3-5.1); Sodium 142 mmol/L (135-145); Total Protein 7.0 g/dL (6.5-8.0)
[2025-03-06 11:15] LABS: Hemoglobin A1C 141.9608 umol/L; Total Hemoglobin (HGBA1C) 3393.3083 umol/L
== END 2025-03-06 07:51 | disposition home or self-care (01) ==
LOC: HO.HMGCLDS 07:50
PROVIDERS: PCP Internal Medicine; Visit Provider Internal Medicine
DX: I10 Essential (primary) hypertension (principal); F33.41 Major depressive disorder, recurrent, in partial remission; R73.01 Impaired fasting glucose
CPT/HCPCS: 36415; 80053; 83036